=== PATIENT | male | born 1975 | race African-American/Black ===

== ENCOUNTER → 2017-03-02 | Outpatient (CLI) | payer OTHER ==
[~2017-03-02] MED LIST: CONRAY-43 43% 50ML VIAL (Q9960) As Ordered ONE; PROHANCE 279.3MG/ML 5ML VIAL (A9576) As Ordered ONE
--- NOTE | 2017-03-02 10:52 | REP ---
MR ARTHROGRAM OF THE RIGHT SHOULDER: TECHNIQUE: Axial T2 fat sat, coronal oblique T1, T2 fat sat, post arthrogram axial T1 fat sat, proton density, coronal oblique T1 fat sat, T2 sat, sagittal oblique T2 fat sat, ABER T1 fat sat. There is mild subchondral marrow edema in the distal end of the clavicle with a tiny amount of fluid in acromioclavicular joint. There is no evidence of tear of the acromioclavicular or coracoclavicular ligaments. The acromion is type II. There is no evidence of a rotator cuff tear. The biceps tendon is within the bicipital grove with no tenosynovitis. There is no Hill-Sachs deformity. Deltoid muscle demonstrates no abnormal signal. Biceps labral complex appears intact. There is a tear of the inferior aspect of the anterior labrum which also involves the cartilage. There is also involvement of the anterior aspect of the inferior labrum. There is no paralabral cyst. The remaining osseous structures demonstrate normal marrow signal. There is no occult fracture. There is no significant joint effusion. IMPRESSION: Tear of the anterior labrum inferior aspect also involves the cartilage. There is also involvement of the anterior aspect of the inferior labrum. No rotator cuff tear. Mild subchondral marrow edema in the distal end of the clavicle with a tiny amount of fluid in the acromioclavicular joint. Signed by Sandeep Goins MD 03/02/2017 05:23 P
--- NOTE | 2017-03-03 14:20 | REP ---
Procedure: Right shoulder arthrogram The procedure was performed under the direct supervision of Dr. Goins. History: Right shoulder pain The benefits and risks including but not limited to pain, infection, bleeding and anaphylaxis were explained to the patient and informed consent was obtained. Technique: The right glenohumeral joint space was localized using fluoroscopic guidance. The skin was prepped and draped in a sterile fashion. 1% lidocaine was used as a local anesthetic. Using fluoroscopic guidance a 22 gauge spinal needle was inserted and advanced into the joint. 0.5 ml of Conray 43 was injected to verify placement. 11 ml of a solution containing 20 ml of sterile saline and 0.15 ml of ProHance was injected into the joint. The needle was removed and the patient was taken to MRI for postprocedural imaging. The the patient tolerated the procedure well and there were no immediate complications. Less than 6 seconds of fluoro time was utilized for this procedure. Reviewed by ANTHONY Mary 03/02/2017 04:12 PSigned by Sandeep Goins MD 03/02/2017 05:19 P
== END ==
LOC: M RADPRO 07:02
PROVIDERS: ATTEND Family Medicine
DX: M25.511 Pain in right shoulder (principal); M75.91 Shoulder lesion, unspecified, right shoulder; M25.411 Effusion, right shoulder
CPT/HCPCS: 23350; 73223; 77002; A9576; Q9960

== ENCOUNTER → 2018-04-26 | Outpatient (CLI) | payer OTHER ==
--- NOTE | 2018-04-26 11:36 | REP ---
RENAL AND BLADDER ULTRASOUND: Real-time sonographic evaluation of the kidneys performed. The kidneys are enlarged with multiple innumerable cysts bilaterally compatible with polycystic kidney disease. Right kidney measures 18.4 x 11.5 x 9.7 cm and left kidney 21.4 x 11.1 x 11.7 cm. The multiple bilateral cysts replace normal renal cortex with minimal cortex identified bilaterally. There is no hydronephrosis. Largest cyst on the right measures 5 cm in diameter and on the left 9.6 cm. The urinary bladder is only minimally distended and not optimally evaluated, with no gross abnormality. IMPRESSION: Enlarged polycystic kidneys bilaterally without hydronephrosis. Electronically Signed by Sandeep Goins MD 04/26/2018 05:22 P
== END ==
LOC: M RAD 10:05
PROVIDERS: ATTEND Internal Medicine Nephrology
DX: N18.3 Chronic kidney disease, stage 3 (moderate) (principal); I12.9 Hypertensive chronic kidney disease with stage 1 through stage 4 chronic kidney disease, or unspecified chronic kidney disease

== ENCOUNTER → 2018-06-06 | Outpatient (CLI) | payer OTHER ==
--- NOTE | 2018-06-06 08:58 | REP ---
RIGHT UPPER QUADRANT ULTRASOUND: Real-time sonographic evaluation of the right upper quadrant performed. The gallbladder demonstrates no evidence of intraluminal sludge or calculi, wall thickening or pericholecystic fluid. There is no intrahepatic or extrahepatic biliary dilatation, common bile duct measuring 4 mm. Liver and pancreas demonstrate homogeneous echotexture with no gross mass, pancreas not optimally seen due to overlying bowel gas. Right kidney demonstrates significant enlargement with polycystic appearance measuring 22.7 x 11.3 x 12.3 cm. Multiple innumerable cysts are seen, the largest measuring 7.2 x 5.4 x 5.0 cm. Visualized abdominal aorta is normal in caliber. No ascites is seen. IMPRESSION: Enlarged polycystic right kidney. Otherwise negative right upper quadrant ultrasound. Electronically Signed by Sandeep Goins MD 06/06/2018 09:40 A
--- NOTE | 2018-06-06 09:16 | REP ---
MR BRAIN WITHOUT CONTRAST: HISTORY: Headache. 3D [id number] MR angiography was performed at the level of the [facility]. There is no aneurysm, arteriovenous malformation or atherosclerotic lesion. Major intracranial vessels are patent. The right vertebral artery is dominant. The left vertebral artery terminates in the left posterior inferior cerebellar artery. IMPRESSION:Normal MRA brain. Electronically Signed by Kirit Major MD 06/06/2018 09:19 A
== END ==
LOC: M RAD 06:32
PROVIDERS: ATTEND Internal Medicine Nephrology
DX: I67.1 Cerebral aneurysm, nonruptured (principal); Q61.2 Polycystic kidney, adult type; Q44.6 Cystic disease of liver; R51 Headache

== ENCOUNTER → 2018-07-01 | Outpatient (CLI) | payer OTHER ==
--- NOTE | 2018-07-01 16:39 | REP ---
MRI abdomen and kidneys without contrast: History: Polycystic kidney disease. For calculated renal volumes. Comparison sonography April 26, 2018. Technique: Axial and coronal T1 and T2-weighted scans were obtained. Sequences include spin-echo, fast spin echo, diffusion, in and out of phase, gradient echo and T1 fat sat images. MRI findings: Kidneys are bilaterally moderately enlarged with innumerable benign appearing simple cysts. There are scattered tiny subcentimeter hepatic cysts partially seen. No splenic or pancreatic cysts are appreciated. There is no evidence of ascites. No hydronephrosis is apparent. Right renal dimensions by MRI are 12.4 x 16.4 x 13.7 cm for a calculated right renal volume of 1819.3 mL. Left renal dimensions are 13.2 x 9.5 x 17.6 cm for a calculated left renal volume of 1441.2 mL. Impression: Kidneys are moderately enlarged due to polycystic kidney disease. Measurements as above. Electronically Signed by Luis Fernando Olguin MD 07/01/2018 04:47 P
== END ==
LOC: M RAD 14:48
PROVIDERS: ATTEND Internal Medicine Nephrology
DX: Q61.2 Polycystic kidney, adult type (principal)

== ENCOUNTER → 2018-07-18 | Outpatient (CLI) | payer OTHER ==
--- NOTE | 2018-07-18 11:24 | REP ---
MR ARTHROGRAM RIGHT SHOULDER: TECHNIQUE: Axial T2 fat sat, coronal oblique T1, T2 fat sat, post arthrogram axial T1 fat sat, proton density, coronal oblique T1 fat sat, T2 sat, sagittal oblique T2 fat sat, ABER T1 fat sat. There is very mild ill-defined high signal in the supraspinatus tendon compatible with mild tendinopathy. No rotator cuff tendon tear is seen. There are mild hypertrophic degenerative changes of the acromioclavicular joint with mild subchondral marrow edema. Acromion is type 2. The biceps tendon is within the bicipital groove. There is a very small amount of surrounding fluid. There is no Hill-Sachs deformity. The deltoid muscle demonstrates no abnormal signal. Biceps labral complex is intact. There is a tear of the inferior aspect of the anterior labrum extending into the anterior aspect of the inferior labrum. There is fissuring and thinning of the glenoid cartilage in that region. There is no paralabral cyst. There is no occult fracture. There is a normal amount of joint fluid. IMPRESSION: Mild hypertrophic degenerative change acromioclavicular joint with a type 2 acromion. Minor tendinopathy of the supraspinatus tendon. No evidence of a rotator cuff tear. There is a tear of the inferior aspect of the anterior labrum. This extends into the anterior aspect of the inferior labrum. There is also some fissuring and thinning of the glenoid cartilage in that region. Electronically Signed by Sandeep Goins MD 07/19/2018 03:01 P
--- NOTE | 2018-07-18 17:07 | REP ---
Reason For Patient Visit: History of chronic right anterior shoulder pain. Reason For Exam/Comment: Worsening right shoulder pain after physical therapy Procedure: Right shoulder arthrogram The procedure was performed by ANTHONY Holland, under the direct supervision of Dr. Goins. History: History of chronic right anterior shoulder pain. MRI with arthrogram of right shoulder in 02/2017 demonstrates tear of the anterior labrum inferior aspect also involving the cartilage. The patient has had a physical therapy and now feels as though the pain is getting worse, follow-up progression of labral tear. The benefits and risks including but not limited to pain, infection, bleeding and anaphylaxis were explained to the patient and informed consent was obtained both verbally and written. Directly prior to the start of the procedure, a formal time-out was completed in the procedure room. Technique: The right glenohumeral joint space was localized using fluoroscopic guidance. The skin was prepped and draped in the usual sterile fashion. 5 mL of 1% lidocaine was used as a local anesthetic. Using fluoroscopic guidance a 22-gauge spinal needle was inserted and advanced to the right glenohumeral joint space. 1 mL of Conray 43 was injected to verify needle placement. A 12 mL solution containing 20 ml of sterile saline and a 0.15 ml of ProHance was injected into the joint. The needle was removed and the patient was taken MRI for post procedural imaging. The patient tolerated the procedure well and there were no immediate complications. 0.2 minutes of fluoroscopy time was utilized for this procedure. Reviewed by ANTHONY [place] 07/18/2018 08:50 A Electronically Signed by Sandeep Goins MD 07/18/2018 04:57 P
== END ==
LOC: M RADPRO 06:30
PROVIDERS: ATTEND Physician Assistant
DX: M19.011 Primary osteoarthritis, right shoulder (principal); M25.511 Pain in right shoulder
CPT/HCPCS: 23350; 73223; 77002; A9576; Q9960

== ENCOUNTER 2019-06-01 23:04 | Emergency (ER) | payer OTHER ==
[~2019-06-01] VITALS: Ht 180.3 cm; Wt 98.6 kg
[2019-06-01 23:05] VITALS: BP 121/83
[2019-06-01] MEDS ORDERED: NORV5TAB PO (23:11)
[2019-06-01] MEDS ORDERED: LOSA25TA14 PO (23:11)
[2019-06-01] MEDS ORDERED: PAXI10TA12 PO (23:11)
[2019-06-01] MEDS ORDERED: PRED20TA PO (23:26)
[2019-06-01] MEDS ORDERED: predniSONE 20 MG TAB PO ONE (23:30)
== END 2019-06-01 23:54 | disposition home or self-care (01) ==
LOC: M ED 23:04
DX: M10.071 Idiopathic gout, right ankle and foot (principal); I10 Essential (primary) hypertension; Q61.3 Polycystic kidney, unspecified; Z79.52 Long term (current) use of systemic steroids; Z79.899 Other long term (current) drug therapy

== ENCOUNTER 2019-07-22 22:40 | Emergency (ER) | payer OTHER ==
[~2019-07-22] VITALS: Ht 180.3 cm; Wt 92.5 kg
[~2019-07-22 22:40] MED LIST changes: -CONRAY-43 43% 50ML VIAL (Q9960) As Ordered ONE; +LOSA25TA14 PO; +NORV5TAB PO; +PAXI10TA12 PO; +PRED20TA PO; -PROHANCE 279.3MG/ML 5ML VIAL (A9576) As Ordered ONE
[2019-07-22] MEDS ORDERED: LOSA50TA88 PO (23:01)
[2019-07-22] MEDS ORDERED: QUET5TAB PO (23:01)
[2019-07-22] MEDS ORDERED: PARO20TA4 PO (23:01)
[2019-07-22] MEDS ORDERED: NS 1,000 ML IV ONE (23:15)
[2019-07-22 23:36] LABS: BASO % 0.2 % (0.0-1.0); EOS % 0.2 % (0.0-3.0); HEMATOCRIT 28.5 % (42.0-52.0); HEMOGLOBIN 9.8 g/dl (13.5-17.5); LYMPH % 21.8 % (24.0-44.0); MEAN CORPUSCULAR HEMOGLOBIN 35.5 pg (27.0-33.0); MEAN CORPUSCULAR HGB CONC 34.4 g/dl (32.0-36.5); MEAN CORPUSCULAR VOLUME 103.3 fl (80.0-96.0); MONO # 0.4 10^3/uL (0.0-0.8); MONO % 8.6 % (0.0-5.0); NEUTROPHILS # 3.2 10^3/uL (1.5-8.5); NEUTROPHILS % 68.6 % (36.0-66.0); PLATELET COUNT, AUTOMATED 160 10^3/uL (150-450); RED BLOOD COUNT 2.76 10^6/uL (4.30-6.10); WHITE BLOOD COUNT 4.6 10^3/uL (4.0-10.0)
--- NOTE | 2019-07-22 23:55 | REPVR ---
PROCEDURE INFORMATION: Exam: CT Head Without Contrast Exam date and time: 07/22/2019 11:34 PM Age: 44 years old Clinical indication: Pain; Headache; Additional info: Altered mental status TECHNIQUE: Imaging protocol: Computed tomography of the head without contrast. Radiation optimization: All CT scans at this facility use at least one of these dose optimization techniques: automated exposure control; mA and/or kV adjustment per patient size (includes targeted exams where dose is matched to clinical indication); or iterative reconstruction. COMPARISON: MRA BRAIN W/O CONTRAST 06/06/2018 7:46 AM FINDINGS: Brain: Acute on chronic right frontal subdural hemorrhage measuring 11 mm at its maximum. There is acute on chronic left frontal subdural hemorrhage which measures 6 mm at its maximum. Goins-white differentiation is maintained. There is acute subdural hemorrhage in the interhemispheric fissure anteriorly and posteriorly it measures 4 mm at its maximum in the posterior interhemispheric region. Ventricles: Normal. No ventriculomegaly. Bones/joints: Unremarkable. No acute fracture. Sinuses: Visualized sinuses are unremarkable. No fluid levels. Mastoid air cells: Visualized mastoid air cells are well aerated. Soft tissues: Unremarkable. IMPRESSION: Bilateral acute on chronic frontal hemorrhages measuring 11 mm at its maximum on the right and 6 mm on the left. Acute subdural hemorrhage in the interhemispheric fissure anteriorly and posteriorly and measures 4 mm at its maximum in the posterior interhemispheric region. No midline shift. Electronically signed by: Steven Soliman On 07/22/2019 23:55:12 PM
[2019-07-23 00:15] LABS: AMPHETAMINES LEVEL URINE NEGATIVE (NEGATIVE); BARBITURATES URINE NEGATIVE (NEGATIVE); BENZODIAZEPINES URINE NEGATIVE (NEGATIVE); CANNABINOIDS URINE NEGATIVE (NEGATIVE); COCAINE METABOLITE URINE NEGATIVE (NEGATIVE); METHADONE URINE NEGATIVE (NEGATIVE); OPIATES URINE NEGATIVE (NEGATIVE); PHENCYCLIDINE URINE NEGATIVE (NEGATIVE)
[2019-07-23 00:17] LABS: INR 1.04; PARTIAL THROMBOPLASTIN TIME 24.4 SECONDS (25.0-38.4); PROTHROMBIN TIME 13.3 SECONDS (11.8-14.0)
[2019-07-23 00:39] LABS: ACETAMINOPHEN LEVEL < 2.0 UG/ML (10.0-30.0); ALBUMIN 2.6 GM/DL (3.2-5.2); ALT/SGPT 75 U/L (12-78); BILIRUBIN,DIRECT 0.3 MG/DL (0.0-0.2); BILIRUBIN,TOTAL 0.6 MG/DL (0.2-1.0); BLOOD UREA NITROGEN 21 MG/DL (7-18); CALCIUM LEVEL 8.2 MG/DL (8.5-10.1); CARBON DIOXIDE LEVEL 24 MEQ/L (21-32); CHLORIDE LEVEL 105 MEQ/L (98-107); CK-MB VALUE MASS 1.3 NG/ML (<3.6); CPK CREATINE PHOSPHOKINASE 249 U/L (39-308); CREATININE FOR GFR 1.83 MG/DL (0.70-1.30); ETHYL ALCOHOL (ETHANOL) < 0.003 % (0.000-0.010); GLOMERULAR FILTRATION RATE 52.6 (>60); GLUCOSE, FASTING 142 MG/DL (70-100); MB/CK RELATIVE INDEX 0.52 (< OR =4); POTASSIUM SERUM 3.6 MEQ/L (3.5-5.1); SALICYLATE LEVEL < 1.7 MG/DL (5.0-30.0); SODIUM LEVEL 139 MEQ/L (136-145); TOTAL PROTEIN 7.2 GM/DL (6.4-8.2); TROPONIN I < 0.02 NG/ML (< 0.10)
[2019-07-23 01:15] VITALS: BP 136/100
--- NOTE | 2019-07-23 11:18 | ECGEPIP ---
[facility] - ED Test Date: 2019-07-22 Pat Name: LAWRENCE LOUIS Department: Room: - Gender: Male [employer] Work[employer]: [email or web address] : 1975 Requested By: LEANDRO López Order Number: [id number] Reading MD: Iza Crowley Measurements Intervals [place] Rate: 127 P: 30 NH: 166 QRS: -29 QRSD: 96 T: 29 QT: 281 QTc: 409 Interpretive Statements SINUS TACHYCARDIA BORDERLINE LEFT AXIS DEVIATION LOW QRS VOLTAGE IN PRECORDIAL LEADS ABNORMAL RHYTHM ECG NO PRIOR Electronically Signed on 07-23-2019 11:17:57 EDT by Iza Crowley
== END 2019-07-23 01:18 | disposition short-term general hospital (02) ==
LOC: M ED 22:40
DX: I62.03 Nontraumatic chronic subdural hemorrhage (principal); I62.01 Nontraumatic acute subdural hemorrhage; I10 Essential (primary) hypertension; Z79.899 Other long term (current) drug therapy; F17.210 Nicotine dependence, cigarettes, uncomplicated
CPT/HCPCS: 70450; 80048; 80076; 80307; 81001; 82550; 82553; 83605; 84443; 84484; 85025; 85610; 85730; 93005; 93041; 94760; 96360; 99291; G0480

== ENCOUNTER → 2019-09-19 | Outpatient (REF) | payer OTHER ==
[~2019-09-19] MED LIST changes: +LOSA50TA88 PO; +PARO20TA4 PO; +QUET5TAB PO
== END ==
LOC: M LAB REF 16:47
PROVIDERS: ATTEND Nurse Practitioner Family
DX: N39.0 Urinary tract infection, site not specified (principal)